=== PATIENT | female | born 1935 | race Caucasian/White ===

== ENCOUNTER 2016-06-22 14:54 | Inpatient (IN) | payer MEDICARE ==
[~2016-06-22] VITALS: Ht 154.9 cm; Wt 76.5 kg
[2016-06-23] MEDS ORDERED: NIAC500T5 PO (16:09)
[2016-06-23] MEDS ORDERED: ZINC50TA PO (16:09)
[2016-06-23] MEDS ORDERED: NATU400T PO (16:09)
[2016-06-23] MEDS ORDERED: VITA2000 PO (16:09)
[2016-06-23] MEDS ORDERED: VITA10007 PO (16:09)
[2016-06-23] MEDS ORDERED: CENTTAB PO (16:09)
[2016-06-23] MEDS ORDERED: ESTR1.25 PO (16:09)
[2016-06-23] MEDS ORDERED: CYAN25003 SL (16:09)
[2016-07-10] MEDS ORDERED: HYDR-3288 PO (07:22)
[2016-07-10] MEDS ORDERED: APIX2.5T PO (07:23)
[2016-07-10] MEDS ORDERED: EXPAREL PERI-ARTICULAR INJECTION (TOTAL VOL. 60 ML) P-ARTICULR SCH ×2 (07:30)
[2016-07-10] MEDS ORDERED: SODIUM CHLORIDE 0.9% IV SCH (07:30)
[2016-07-10] MEDS ORDERED: DEXAMETHASONE SOD PHOS 20 MG/5 ML VIAL IV SCH (07:30)
[2016-07-10] MEDS ORDERED: CHLORHEXIDINE GLUCONATE 4% SOLN 120 ML BTL TOP SCH (07:30)
[2016-07-10] MEDS ORDERED: POVIDONE IODINE 7.5% SCRUB 118 ML BOTTLE TOP SCH (07:30)
[2016-07-10] MEDS ORDERED: TRANEXAMIC PERI-ARTICULAR 3,000 MG/NS 100 ML P-ARTICULR SCH ×2 (07:30)
[2016-07-10] MEDS ORDERED: VANCOMYCIN 1000 MG/NS 250 ML (for <70 kg) IV SCH ×2 (07:30)
[2016-07-10] MEDS ORDERED: ceFAZolin 2 GM PREMIX 50 ML IV SCH (07:30)
[2016-07-10] MEDS ORDERED: TRANEXAMIC ACID IV SCH (07:30)
[2016-07-10] MEDS ORDERED: METOPROLOL TARTRATE 25 MG TAB PO PRN (07:45)
[2016-07-10] MEDS ORDERED: LACTATED RINGER'S 1000 ML IV SCH (07:45)
[2016-07-10] MEDS ORDERED: INSULIN HUMAN REGULAR 1,000 UNITS/10 ML VIAL SQ PRN (07:45)
[2016-07-10] MEDS ORDERED: SODIUM CHLORID 0.9% 500 ML IV SCH (07:45)
[2016-07-10] MEDS ORDERED: [UNRECOGNIZED DRUG - OTHER] PERIART SCH ×5 (07:45)
[2016-07-10 07:54] VITALS: BP 192/88; PULSE 87; RESP 22; TEMP 98; O2SAT 99
[2016-07-10] MEDS ORDERED: ZOLPIDEM TARTRATE 5 MG TAB PO PRN (09:00)
[2016-07-10] MEDS ORDERED: SODIUM CHLORIDE 0.9% FLUSH 5 ML FLUSH IVF PRN (09:00)
[2016-07-10] MEDS ORDERED: diphenhydrAMINE HCL 50 MG/ML VIAL IV PRN (09:00)
[2016-07-10] MEDS ORDERED: BISACODYL 10 MG SUPP PR PRN (09:00)
[2016-07-10] MEDS ORDERED: ACETAMINOPHEN/HYDROcodone 325 MG/7.5 MG TAB PO PRN ×2 (09:00)
[2016-07-10] MEDS ORDERED: ONDANSETRON HCL 4 MG/2 ML VIAL IVP PRN (09:00)
[2016-07-10] MEDS ORDERED: SODIUM CHLORIDE 0.9% FLUSH 5 ML FLUSH IVF SCH (09:00)
[2016-07-10] MEDS ORDERED: MORPHINE SULFATE 4 MG/ML INJ IV PUSH PRN (09:00)
[2016-07-10] MEDS ORDERED: ALUMINUM/MAGNESIUM/SIMETH 30 ML CUP PO PRN (09:00)
[2016-07-10] MEDS ORDERED: Post-op Orders (for Pharmacy) MISC XX ONE (09:00)
[2016-07-10] MEDS ORDERED: MAGNESIUM HYDROXIDE SUSP 30 ML CUP PO PRN (09:00)
[2016-07-10] MEDS ORDERED: NALOXONE HCL 0.4 MG/ML AMP IV PRN (09:00)
[2016-07-10] MEDS ORDERED: FAMOTIDINE 20 MG/2 ML VIAL ONE (09:07)
[2016-07-10] MEDS ORDERED: MIDAZOLAM HCL 5 MG/5 ML VIAL ONE (09:07)
[2016-07-10] MEDS ORDERED: DEXAMETHASONE SOD PHOS 4 MG/ML VIAL ONE (09:08)
[2016-07-10] MEDS ORDERED: GENTAMICIN SULFATE 80 MG/2 ML VIAL ONE (09:31)
[2016-07-10] MEDS ORDERED: ESTROGENS CONJUGATED 1.25 MG TAB PO SCH (10:00)
[2016-07-10] MEDS ORDERED: SODIUM CHLOR 0.9% 1000 ML INJ 1,000 ML IV SCH (10:00)
[2016-07-10] MEDS ORDERED: BUPIVACAINE LIPOSOME PF 1.3% 20 ML VIAL ONE (10:23)
[2016-07-10] MEDS ORDERED: ACETAMINOPHEN 1000 MG/100 ML VIAL IV ONE (10:38)
[2016-07-10] MEDS ORDERED: *ENALAPRILAT 1.25 MG/ML VIAL PERIprocedural Use ONLY ONE (12:47)
[2016-07-10] MEDS ORDERED: *LABETALOL HCL 100 MG/20 ML VIAL PERIprocedural Use ONLY ONE (12:48)
[2016-07-10] MEDS ORDERED: *morphine SULFATE 8 MG/ML PERIprocedure ONLY ONE (12:59)
[2016-07-10] MEDS ORDERED: LACTATED RINGER'S 1000 ML INJ 2,000 ML IV ONE (13:12)
[2016-07-10] MEDS ORDERED: PROPOFOL 200 MG/20 ML AMP IV ONE (13:12)
[2016-07-10] MEDS ORDERED: ONDANSETRON HCL 4 MG/2 ML VIAL IV PUSH ONE (13:12)
--- NOTE | 2016-07-10 13:25 | HHI.DCPOC ---
Discharge Care Plan Diagnosis: (1) Primary localized osteoarthrosis, lower leg Your Health Problems Are: Difficulty with ADL Goals to Promote Your Health * To prevent worsening of your condition and complications * To maintain your health at the optimal level Directions to Meet Your Goals Take your medications as prescribed Follow your dietary instruction Follow activity as directed Keep your appointments as scheduled Take your immunizations and boosters as scheduled If your symptoms worsen call your PCP, if no PCP go to Urgent Care Center or Emergency Room Smoking is Dangerous to Your Health. Avoid second hand smoke Call the 24-hour hour crisis hotline for domestic abuse at Yifan Tanner Jul 10, 2016 13:25
--- NOTE | 2016-07-10 13:26 | HHI.FF ---
Face to Face Verification Diagnosis: (1) Primary localized osteoarthrosis, lower leg Physical Therapy Gait training, Safety evaluation, Transfer training, bed to chair Knee: Total knee, Protocol: Right, Full weight bearing Right LE Weight Bearing: WB as tolerated Nursing RN: 3 days/week x 2 weeks Nursing: Dressing changes Dressing Changes: Daily dressing change I have seen patient Margie Moon on 07/10/16. My clinical findings support the need for the requested home health care services because: Limited ability to care for self High risk of falls I certify that my clinical findings support that this patient is homebound because: Post-op weakness Unsteady gait/balance Yifan Tanner Jul 10, 2016 13:26
[2016-07-10] MEDS ORDERED: 3-IN3MIS (13:28)
[2016-07-10] MEDS ORDERED: CPMMACHINE (13:28)
[2016-07-10] MEDS ORDERED: WALKER WHEELS/F1 MIS (13:28)
--- NOTE | 2016-07-10 14:14 | RADRPT ---
EXAM DATE/TIME: 07/10/2016 13:10 [facility] COMPARISON: No previous studies available for comparison. INDICATIONS : Post OP right knee. MEDICAL HISTORY : None. SURGICAL HISTORY : None. ENCOUNTER: Initial ACUITY: 1 day PAIN SCORE: 0/10 LOCATION: Right knee FINDINGS: AP and lateral views of the right knee were obtained and demonstrate the patient status post total kn ee arthroplasty. The femoral and tibial components are intact and in normal alignment. There are post operative changes involving the patella. There is anterior soft tissue swelling. CONCLUSION: Expected postoperative changes status post arthroplasty. Sage Morataya MD on July 10, 2016 at 14:11 Board Certified Radiologist. This report was verified electronically.
[2016-07-10 14:55] VITALS: BP 170/79; PULSE 82; RESP 18; TEMP 95.2; O2SAT 98
[2016-07-10 16:00] VITALS: BP 147/62; PULSE 79; RESP 18; TEMP 96.3; O2SAT 99
--- NOTE | 2016-07-10 16:14 | PD.CONS ---
HPI Service [facility] Hospitalists Consult Requested By Dr. Yifan Nelson Reason for Consult Medical Management Primary Care Physician Yifan Ellington Diagnoses: History of Present Illness Ms. Moon is a pleasant 80 y/o female with osteoarthritis, post-herpetic neuralgia and white coat hypertension. Pt was admitted for elective right knee arthroplasty on 07/10/[address] Nelson. [facility] hospitalist team has been consulted as the pt has had a noted elevated blood pressure since admission. She is not on any BP medications chronically and reports that at home her BP is well controlled without medications. She denies any headache, dizziness, nausea/vomiting, chest pain, SOB or palpitations. Review of Systems Constitutional: DENIES: Fever, Chills Respiratory: DENIES: Cough, Shortness of breath Cardiovascular: DENIES: Chest pain, Palpitations Gastrointestinal: DENIES: Black stools, Nausea, Vomiting Genitourinary: DENIES: Hematuria, Dysuria Musculoskeletal: COMPLAINS OF: Joint pain Integumentary: DENIES: Rash Hematologic/lymphatic: DENIES: Bruising Neurologic: DENIES: Headache Psychiatric: DENIES: Confusion Past Family Social History Past Medical History Osteoarthritis Post-herpetic neuralgia Intermittent elevated blood pressure Past Surgical History Hysterectomy Cholecystectomy Reported Medications Centrum Silver (Multiple Vitamins W/ Minerals) 1 Tab 0.5 Tab PO DAILY Zinc 50 Mg Tab 50 Mg PO DAILY Vitamin B-12 (Cyanocobalamin) 2,500 Mcg Subl 2,500 Mcg SL DAILY Vitamin C (Ascorbic Acid) 1,000 Mg Tab 1,000 Mg PO DAILY Niacin 500 Mg Tab 500 Mg PO DAILY Vitamin E 400 Unit Tab 400 Units PO DAILY Vitamin D3 (Cholecalciferol) 2,000 Unit Cap 2,000 Units PO DAILY Premarin (Estrogens Conjugated) 1.25 Mg Tab 1.25 Mg PO DAILY Allergies: Coded Allergies: Darvocet-N 100 (Verified Allergy, Severe, HIVES , SWELLING, 07/10/16) Family History Noncontributory Social History Denies any alcohol, tobacco or illicit drug use Physical Exam Vital Signs Vital Signs Date Time Temp Pulse Resp B/P Pulse Ox O2 Delivery O2 Flow Rate FiO2 07/10/16 14:55 95.2 82 18 170/79 98 07/10/16 14:00 97.8 71 15 150/84 98 Nasal Cannula 2 07/10/16 13:45 73 15 149/80 97 Nasal Cannula 2 07/10/16 13:30 74 14 157/81 96 Nasal Cannula 2 07/10/16 13:15 76 14 165/88 95 Nasal Cannula 07/10/16 13:04 15 07/10/16 13:00 78 14 170/93 95 Nasal Cannula 2 07/10/16 12:45 85 14 180/98 94 Nasal Cannula 2 07/10/16 12:30 92 13 153/84 98 Nasal Cannula 3 07/10/16 12:15 97.4 90 13 159/81 99 Nasal Cannula 3 07/10/16 07:54 98.0 87 22 192/88 99 Physical Exam GENERAL: This is a well-nourished, well-developed patient, in no apparent distress. HEENT: Atraumatic. Normocephalic. No temporal or scalp tenderness. No scleral icterus. Airway patent. NECK: Trachea midline, supple, nontender. CARDIO: Regular. RESP: CTA bilaterally. No wheezes, rales, or rhonchi. ABD: +BS, soft, non-tender, nondistended. EXT: Right knee bandages are c/d/i NEURO: Awake and alert. Motor and sensory grossly within normal limits. Normal speech. Laboratory Laboratory Tests Test 07/10/16 07:53 Blood Type O POSITIVE Antibody Screen NEGATIVE Blood Bank Comment 0 Imaging Last Impressions Knee X-Ray 07/10/16 0891 Signed Impressions: Service Date/Time: Sunday, July 10, 2016 13:10 - CONCLUSION: Expected postoperative changes status post arthroplasty. Sage Morataya MD Assessment and Plan Problem List: (1) Primary localized osteoarthrosis, lower leg Status: Chronic Plan: - Pt underwent right total knee arthroplasty on 07/10/[address] Nelson - Post-op pain control per Ortho - IS - PT - Constipation precautions - Supportive care - DVT prophylaxis (2) Elevated BP without diagnosis of hypertension Status: Acute Plan: - pt with elevated BP since admission with a reported hx of white coat hypertension - Clonidine PRN - Vasotec PRN Assessment and Plan Patient examined. Assessment and plan formulated with Alma Delia LAST I agree with the above. Problem Qualifiers (1) Primary localized osteoarthrosis, lower leg: Qualified Code: M17.11 - Primary localized osteoarthrosis, lower leg, right Alma Delia Hutchins Jul 10, 2016 16:14 Benjamin Daniels DO Jul 16, 2016 06:51
[2016-07-10] MEDS ORDERED: ENALAPRILAT 1.25 MG/ML VIAL IV PUSH PRN (16:15)
[2016-07-10] MEDS ORDERED: cloNIDine HCL 0.1 MG TAB PO PRN (16:15)
[2016-07-10 20:18] VITALS: BP 127/60; PULSE 85; RESP 18; TEMP 96.6; O2SAT 98
[2016-07-11] VITALS: BP 122/70; PULSE 86; RESP 16; TEMP 97.4; O2SAT 98
[2016-07-11 01:38] VITALS: O2SAT 98
[2016-07-11 04:00] VITALS: BP 134/69; PULSE 82; RESP 16; TEMP 97.5; O2SAT 97
[2016-07-11 08:00] VITALS: BP 170/74; PULSE 74; RESP 18; TEMP 97; O2SAT 95
[2016-07-11 08:15] LABS: HEMATOCRIT 28.6 % (35.0-46.0); MEAN CELL VOLUME 95.3 FL (80.0-100.0); MEAN CORPUSCULAR HEMOGLOBIN 32.2 PG (27.0-34.0); MEAN CORPUSCULAR HGB CONC 33.8 % (32.0-36.0); PLATELET COUNT 269 TH/MM3 (150-450); RED CELL DISTRIBUTION WIDTH 12.8 % (11.6-17.2); REVIEW FLAG FINAL; WHITE BLOOD COUNT 12.7 TH/MM3 (4.0-11.0)
[2016-07-11 08:48] LABS: BICARBONATE 26.7 MEQ/L (21.0-32.0); POTASSIUM 3.7 MEQ/L (3.5-5.1)
--- NOTE | 2016-07-11 08:54 | PD.ORT.PN ---
Subjective Post Op Day #: 1 Subjective Remarks pain under control. ready to go home. Objective Vitals Vital Signs Date Time Temp Pulse Resp B/P Pulse Ox O2 Delivery O2 Flow Rate FiO2 07/11/16 08:00 97.0 74 18 170/74 95 07/11/16 04:00 97.5 82 16 134/69 97 07/11/16 01:38 98 07/11/16 00:00 97.4 86 16 122/70 98 07/10/16 20:18 96.6 85 18 127/60 98 07/10/16 16:00 96.3 79 18 147/62 99 07/10/16 14:55 95.2 82 18 170/79 98 07/10/16 14:00 97.8 71 15 150/84 98 Nasal Cannula 2 07/10/16 13:45 73 15 149/80 97 Nasal Cannula 2 07/10/16 13:30 74 14 157/81 96 Nasal Cannula 2 07/10/16 13:15 76 14 165/88 95 Nasal Cannula 07/10/16 13:04 15 07/10/16 13:00 78 14 170/93 95 Nasal Cannula 2 07/10/16 12:45 85 14 180/98 94 Nasal Cannula 2 07/10/16 12:30 92 13 153/84 98 Nasal Cannula 3 07/10/16 12:15 97.4 90 13 159/81 99 Nasal Cannula 3 I/O 07/10/16 07/10/16 07/10/16 07/11/16 07/11/16 07/11/16 07:00 15:00 23:00 07:00 15:00 23:00 Intake Total 2150 ml Output Total 1725 ml 1600 ml Balance 425 ml -1600 ml Intake IV Total 150 ml Other 2000 ml Output Urine Total 1675 ml 1600 ml Estimated Blood Loss 50 ml Result Diagram: 07/11/16 0752 07/11/16 0752 Imaging Last 24 hours Impressions Knee X-Ray 07/10/16 0854 Signed Impressions: Service Date/Time: Sunday, July 10, 2016 13:10 - CONCLUSION: Expected postoperative changes status post arthroplasty. Sage Morataya MD Objective Remarks in bed, nad incision no erythema, no drainage neg homans nvi Assessment & Plan Ortho Post Op Day #: 1 Problem List: Assessment and Plan s/p R TKA wbat daily dressing changes lovenox - d/c on Eliquis PT d/c planning home with [facility] and pt cleared for d/c today if does well in PT rx in chart f/up dr. garcia 2 weeks Yifan Tanner Jul 11, 2016 08:54
[2016-07-11] MEDS ORDERED: MAGNESIUM HYDROXIDE SUSP 30 ML CUP PO SCH (09:10)
[2016-07-11 10:32] VITALS: O2SAT 95
[2016-07-11] MEDS ORDERED: ENOXAPARIN SODIUM 40 MG/0.4 ML SYRINGE SQ SCH (11:00)
[2016-07-11 11:57] VITALS: BP 173/71; PULSE 73; RESP 18; TEMP 96; O2SAT 100
[2016-07-11] MEDS ORDERED: MULTIVITAMINS/MINERALS THERAPEUTIC TAB PO SCH (21:00)
[2016-07-11] MEDS ORDERED: DOCUSATE SODIUM 100 MG CAP PO SCH (21:00)
[2016-07-11] MEDS ORDERED: SENNOSIDES 8.6 MG TAB PO SCH (21:00)
--- NOTE | 2016-07-12 11:58 | MP ---
cc: CARIDAD OLSEN DATE OF SURGERY 07/10/16 PREOPERATIVE DIAGNOSIS Right knee osteoarthritis POSTOPERATIVE DIAGNOSES Right knee osteoarthritis PROCEDURE Right total knee arthroplasty SURGEON Dr. Afshin Olsen TURN MACHINE OPERATOR ASIA Szymanski ANESTHESIA Spinal with adductor canal block. BLOOD LOSS Less than 50 mL. TOURNIQUET TIME 45 minutes at 250 mmHg COMPLICATIONS None. IMPLANTS USED DePuy attune size five posterior stabilized femoral component, size five rotating platform tibia baseplate, size 8 mm polyethylene tibial insert, size 35 mm patella. DESCRIPTION OF PROCEDURE The patient is an 80-year-old female with history of severe end-stage osteoarthritis involving the right knee. She has severe disabling pain with standing, walking, ambulation with activities even severe pain at rest. She has failed greater than 3 months of nonoperative conservative treatment to include medications, therapy, injections, ambulatory assistive aids, home exercise, activity modification, weight loss attempts. X-ray of the right knee reveals severe end-stage osteoarthritis with [id number] joint space narrowing, subchondral sclerosis, subchondral cyst osteophyte formation, varus deformity. The patient was counseled as to risks, benefits and alternative to total knee arthroplasty. The risks were discussed which include but not limited to anesthesia, bleeding, infection, damage to nerves, blood vessels, pain, stiffness, failure of components, blood clots, pulmonary embolism and even . The patient's pain is severe. She favored the benefits over the risks and did wish to proceed with surgery. PROCEDURE IN DETAIL A written consent obtained. The patient identified by name. Spinal anesthesia was administered to the patient as well as 2 grams of IV Ancef and 1 gram of IV vancomycin. A well-padded tourniquet was placed on the right thigh. The right lower extremity prepped and draped using as isopropyl alcohol, Hibiclens solution and Chloraprep solution. An Esmarch bandage was used to exsanguinate the right lower extremity. Tourniquet inflated to 250 mmHg. A longitudinal incision was made over the anterior aspect of the right knee. A medial parapatellar arthrotomy was performed. The patella was everted, patellar resection guide was used to resect 9.5 mm of patella. Three drill holes were placed and a 35 mm trial fit well. Attention was turned to the femur where an intramedullary guide brittney was placed, 5 degrees off the anatomic valgus axis alignment and 10 mm of distal femur was removed with an oscillating saw using the distal femoral cutting guide. Attention was turned to the tibia where extramedullary tibial guide was placed and set to remove 5 mm off the lowest portion of the medial tibial plateau. The tibia guide was pinned in place. A tibia cut was performed. A 5 mm spacer block showed full extension. Attention was turned back to the femur. The AP sizing block measured a size five. The anterior reference 3 degree external rotation guide was used to pin a size five [address]. Anterior, posterior and chamfer cuts were performed. A size five PCL box was pinned in place. PCL box was cut with an oscillating saw. The medial and lateral meniscus remnants were removed as well as bone and soft tissue debris from the posterior portion of the knee. Size five tibia base was then pinned in place, tibia was drilled punched. Trial components were evaluated and final component cemented in place with the 8-mm polyethylene tibial insert the leg achieved full extension at 0 degrees of flexion to 140. No evidence of tibial lift-off. Varus-valgus balance appeared appropriate and symmetric. The patella was noted to track centrally. Tourniquet was deflated. Bovie cautery was used for hemostasis. The knee was thoroughly irrigated with sterile saline pulse lavage antibiotic impregnated solution. The arthrotomy incision was closed with #1 Vicryl suture. Subcutaneous layer with 2-0 Vicryl suture. Skin was closed with Dermabond. Sterile dressing applied. The patient tolerated procedure well with no intraoperative complications noted. Nils Tanner, physician biology laboratory assistant certified, was present during the entire procedure to include patient positioning and the procedure itself. The medical necessity of physician biology laboratory assistant was indicated in this procedure due to complexity of the procedure. He assisted with appropriate manipulation of the leg and also traction of muscle, tendon, bone and neurovascular structure. He assisted with preparation of bone cuts and also implantation of the prosthetic replacement. MD TODD Terrazas/ /11:57 AM /11:42 AM
--- NOTE | 2016-07-17 07:36 | MD ---
cc: CARIDAD NELSON ADMISSION DATE: 07/10/2016 DISCHARGE DATE: 07/11/2016 ADMISSION DIAGNOSIS Severe degenerative osteoarthritis, right knee. DISCHARGE DIAGNOSIS Severe degenerative osteoarthritis, right knee. HISTORY OF PRESENT ILLNESS Mrs. Moon is a 80-year-old female who presented to the [facility] for evaluation by Dr. Caridad Nelson regarding her progressive right knee pain. The patient states the pain in her right knee has been present for greater than 1 year duration for which she has been treated for this ailment. She states the pain is currently a constant severe aching sensation aggravated with weightbearing activities. She has no alleviating factors at this point in time, although in the past she has tried medications, bracing, physical therapy, home exercise program as well as multiple injections without long-lasting relief of symptoms. She does have x-ray evidence of severe degenerative osteoarthritis of the right knee. While in the office the patient was counseled on her diagnosis and treatment options, risks, benefits, indications were discussed. The patient did elect to proceed with surgical intervention to include a right total knee arthroplasty. DATE OF SURGERY 07/10/2016, right total knee arthroplasty. POSTOP After surgery the patient was admitted to [facility] where she received appropriate medical management, pain control, DVT prophylaxis as well as physical therapy. DISCHARGE Once being discharged from the hospital the patient was cleared to go home where she will receive home health care and home physical therapy. She is in stable condition. She can weight-bear as tolerated. The patient is to receive daily dressing changes and has been instructed on appropriate wound care management. She has been provided prescriptions for pain control as well as DVT prophylaxis medication. She has also been provided a follow-up appointment to see Dr. Caridad Nelson in the office in approximately 2 weeks from date of surgery. The patient has asked appropriate questions which have all been answered. The patient has been discharged. Dictated by: ASIA Christy MD TODD Terrazas/BABAR /8:13 AM /7:36 AM
== END 2016-07-11 13:20 | disposition home health service (06) | DRG 470 ==
LOC: HSDI 07-10 06:34 → N06B 07-10 14:20
PROVIDERS: ADMIT Orthopaedic Surgery Sports Medicine; ATTEND Orthopaedic Surgery Sports Medicine
PROC: 3E0T3BZ Introduction of Anesthetic Agent into Peripheral Nerves and Plexi, Percutaneous Approach (ICD-10-PCS; 2016-07-10)
PROC: 0SRC0J9 Replacement of Right Knee Joint with Synthetic Substitute, Cemented, Open Approach (ICD-10-PCS; principal; 2016-07-10 09:58)
DX: M17.11 Unilateral primary osteoarthritis, right knee (principal); B02.29 Other postherpetic nervous system involvement; R03.0 Elevated blood-pressure reading, without diagnosis of hypertension; Z87.891 Personal history of nicotine dependence; Z85.828 Personal history of other malignant neoplasm of skin
CPT/HCPCS: 73560; 80048; 85027; 86850; 86900; 86901; 94150; C1776; C9290; J0131; J0690; J1100; J1580; J1650; J2250; J2270; J2405; J3370; J7030; J7050; J7120; L1830

== ENCOUNTER → 2016-06-23 | Outpatient (CLI) | payer MEDICARE ==
[~2016-06-23] MED LIST: 3-IN3MIS; APIX2.5T PO; CENTTAB PO; CPMMACHINE; CYAN25003 SL; ESTR1.25 PO; HYDR-3288 PO; NATU400T PO; NIAC500T5 PO; VITA10007 PO; VITA2000 PO; WALKER WHEELS/F1 MIS; ZINC50TA PO
[2016-06-23 09:52] LABS: AUTOMATED NEUTROPHIL # 4.7 TH/MM3 (1.8-7.7); BASOPHIL # 0.1 TH/MM3 (0-0.2); BASOPHIL % 0.8 % (0.0-2.0); EOSINOPHIL # 0.1 TH/MM3 (0-0.4); EOSINOPHIL % 1.2 % (0.0-4.0); HEMATOCRIT 35.7 % (35.0-46.0); HEMO FLAGS DIFF FINAL; LYMPHOCYTE # 2.6 TH/MM3 (1.0-4.8); MEAN CELL VOLUME 93.6 FL (80.0-100.0); MEAN CORPUSCULAR HEMOGLOBIN 32.3 PG (27.0-34.0); MEAN CORPUSCULAR HGB CONC 34.6 % (32.0-36.0); MONO % 5.8 % (0.0-8.0); NEUT % 59.2 % (16.0-70.0); PLATELET COUNT 293 TH/MM3 (150-450); RED BLOOD COUNT 3.81 MIL/MM3 (4.00-5.30); RED CELL DISTRIBUTION WIDTH 12.8 % (11.6-17.2)
[2016-06-23 10:01] LABS: BACTERIA, URINE RARE /hpf; BLOOD, URINE MOD (NEG); GLUCOSE,URINE NEG (NEG); KETONE, URINE NEG (NEG); MUCUS URINE FEW /lpf (OCC); NITRITE,URINE NEG (NEG); PH, URINE 5.5 (5.0-8.5); SQUAMOUS EPITHELIAL CELL URINE <1 /hpf (0-5); URINE COLOR LIGHT-YELLOW (YELLW/STRAW)
[2016-06-23 10:05] LABS: APTT (PATIENT) 25.7 SEC (24.3-30.1); INTERNATIONAL NORMALIZED RATIO 0.9 RATIO
[2016-06-23 10:16] LABS: ANION GAP 8 MEQ/L (5-15); AST (GOT) 11 U/L (15-37); BLOOD UREA NITROGEN 18 MG/DL (7-18); CHLORIDE 101 MEQ/L (98-107); GLOMERULAR FILTRATION RATE 84 ML/MIN (>89); GLUCOSE,FASTING 84 MG/DL (74-99); POTASSIUM 3.8 MEQ/L (3.5-5.1); SODIUM (NA) 138 MEQ/L (136-145)
[2016-06-23 10:21] LABS: ALKALINE PHOSPHATASE 94 U/L (45-117); ALT (GPT) 19 U/L (10-53); TOTAL BILIRUBIN ADULT 0.4 MG/DL (0.2-1.0)
[2016-06-23 10:22] LABS: COMMENT (UR) CULT NOT INDICATED; CULTURE IF INDICATED CULT NOT INDICATED
[2016-06-23 10:54] LABS: WESTERGREN SEDIMENTATION RATE 47 mm/hr (0-30)
--- NOTE | 2016-06-23 12:44 | RADRPT ---
EXAM DATE/TIME: 06/23/2016 11:31 [facility] COMPARISON: No previous studies available for comparison. INDICATIONS : Evaluate for pneumonia, pneumothorax and communicable diseases. Pre-op knee surgery MEDICAL HISTORY : None. SURGICAL HISTORY : None. ENCOUNTER: Initial ACUITY: 1 day PAIN SCORE: 0/10 LOCATION: chest FINDINGS: PA and lateral views of the chest demonstrate the lungs to be symmetrically aerated without evidence of mass, infiltrate or effusion. The cardiomediastinal contours are unremarkable with mild unwinding of the aorta. Osseous structures are intact. CONCLUSION: Normal examination for a patient of this age. Bienvenido Flores MD on June 23, 2016 at 12:42 Board Certified Radiologist. This report was verified electronically.
--- NOTE | 2016-06-23 16:11 | EKG ---
Date Performed: 06/23/2016 Time Performed: 09:53:37 PTAGE: 80 years EKG: Sinus rhythm NORMAL ECG NO PREVIOUS TRACING DOCTOR: Mic Sidhu Interpretating Date/Time 06/23/2016 16:10:39
== END ==
LOC: CPRE 08:51
PROVIDERS: ATTEND Orthopaedic Surgery Sports Medicine
DX: Z01.810 Encounter for preprocedural cardiovascular examination (principal); Z01.812 Encounter for preprocedural laboratory examination; Z01.818 Encounter for other preprocedural examination; M17.11 Unilateral primary osteoarthritis, right knee
CPT/HCPCS: 36415; 71020; 80053; 81001; 85025; 85610; 85652; 85730; 93005